=== PATIENT | female | born 1980 | race Caucasian/White ===

== ENCOUNTER 2022-07-17 05:27 | Outpatient (CLI) | payer OTHER ==
[~2022-07-17] VITALS: Ht 162.5 cm; Wt 104.5 kg
[~2022-07-17 05:27] MED LIST: ACHYD1T PO; AMOX500C2 PO; CEPH250C PO; CEPH500C PO; DOCU-161 PO; DOCU100C37 PO; FERR325T18 PO; HYDR-34 PO; IBP800T PO; IBUP-1773 PO; METO50TA7 PO; METR500T PO; NORG1TAB PO; SIME80TA16 PO; TRAM50TA2 PO
[2022-07-21] MEDS ORDERED: BUSP15TA60 PO (13:03)
[2022-07-21] MEDS ORDERED: LOSA50TA63 PO (13:03)
[2022-07-21] MEDS ORDERED: AMLO-250 PO (13:03)
== END 2022-07-21 13:11 | disposition home or self-care (01) ==
LOC: PREOP 05:27
PROVIDERS: ATTEND Otolaryngology Otolaryngology/Facial Plastic Surgery
DX: Z01.818 Encounter for other preprocedural examination (principal)

== ENCOUNTER 2022-07-25 06:32 | Day surgery (SDC) | payer OTHER ==
[~2022-07-25] VITALS: Ht 165.1 cm; Wt 104.5 kg
[2022-07-25] VITALS (12 sets, daily range): BP systolic 110–190; BP diastolic 68–110
[~2022-07-25 06:32] MED LIST changes: +AMLO-250 PO; +BUSP15TA60 PO; +LOSA50TA63 PO
[2022-07-25 07:25] LABS: BASOPHILS # (AUTO) 0.1 10^3/uL (0.0-0.1); BASOPHILS % (AUTO) 1 % (0-10); EOSINOPHILS # (AUTO) 0.4 10^3/uL (0.0-0.3); EOSINOPHILS % (AUTO) 4 % (0-10); HEMATOCRIT 42 % (35-52); LYMPHOCYTES # (AUTO) 2.2 10^3/uL (1.0-4.0); LYMPHOCYTES % (AUTO) 21 % (12-44); MEAN CORPUSCULAR HEMOGLOBIN 28 pg (25-34); MEAN CORPUSCULAR HGB CONC 34 g/dL (32-36); MEAN CORPUSCULAR VOLUME 82 fL (80-99); MEAN PLATELET VOLUME 9.8 fL (9.0-12.2); MONOCYTES # (AUTO) 0.5 10^3/uL (0.0-1.0); MONOCYTES % (AUTO) 5 % (0-12); NEUTROPHILS # (AUTO) 7.2 10^3/uL (1.8-7.8); NEUTROPHILS % (AUTO) 69 % (42-75); PLATELET COUNT 344 10^3/uL (130-400); WHITE BLOOD COUNT 10.5 10^3/uL (4.3-11.0)
[2022-07-25] MEDS ORDERED: MIDAZOLAM 2 MG/2 ML (VERSED) VIAL IV ONE (07:30)
[2022-07-25] MEDS ORDERED: LACTATED RINGERS 1,000 ML IV PRN (07:30)
[2022-07-25 07:40] LABS: POTASSIUM 3.8 MMOL/L (3.6-5.0)
[2022-07-25 07:42] LABS: CALCIUM 9.6 MG/DL (8.5-10.1)
[2022-07-25 07:46] LABS: CREATININE SERUM 0.66 MG/DL (0.60-1.30)
[2022-07-25] MEDS ORDERED: MUPIROCIN 2% OINT 22 GM (BACTROBAN) TUBE ONE (07:48)
[2022-07-25] MEDS ORDERED: LIDOCAINE/EPI 1%-1:100,000 (XYLOCAINE) 20ML ONE (07:49)
[2022-07-25] MEDS ORDERED: fentaNYL INJ 100 MCG/2 ML AMP ONE (08:01)
[2022-07-25] MEDS ORDERED: proPOfol 200 MG/20 ML (DIPRIVAN) VIAL IV ONE ×2 (08:01→08:41)
[2022-07-25] MEDS ORDERED: MIDAZOLAM 2 MG/2 ML (VERSED) VIAL ONE (08:01)
[2022-07-25] MEDS ORDERED: SEVOFLURANE (ULTANE) 15 ML INHAL SOLN ONE ×2 (08:01→08:29)
[2022-07-25] MEDS ORDERED: LIDOCAINE PF 2% 5 ML (XYLOCAINE) VIAL ONE (08:01)
[2022-07-25] MEDS ORDERED: ONDANSETRON 4 MG/2 ML (SDV) Z0FRAN ONE (08:01)
--- NOTE | 2022-07-25 08:16 | Progress Note-Pre Operative ---
Pre-Operative Progress Note Date of Available H&P: Jul 25, 2022 Date H&P Reviewed: Jul 25, 2022 Time H&P Reviewed: 07:30 History & Physical: H&P Reviewed, Patient Examed, No changes noted Changes from last HP none Pre-Operative Diagnosis: Large Left neck Mass MICHEAL TOSCANO MD Jul 25, 2022 08:16
--- NOTE | 2022-07-25 08:16 | Progress Note-Post Operative ---
Post-Operative Progess Note Surgeon (s)/Care Navigator (s) Surgeon MICHEAL TOSCANO MD Care Navigator n/a Pre-Operative Diagnosis Large Left neck Mass Post-Operative Diagnosis same Post-Op Procedure Note Date of Procedure: Jul 25, 2022 Name of Procedure Performed: Excision of 6cm Left Neck Mass Description & Findings Description and Findings: n/a Anesthesia Type get Estimated Blood Loss minimal Packing none. Specimen(s) collected/removed left Neck Mass to pathology for review MICHEAL TOSCANO MD Jul 25, 2022 08:16
[2022-07-25] MEDS ORDERED: HYDROcodone/APAP 5 MG/325 MG (LORTAB) TAB PO PRN (08:30)
[2022-07-25] MEDS ORDERED: ACETAMINOPHEN 325 MG TABLET PO PRN (08:30)
--- NOTE | 2022-07-25 09:07 | Anesthesia-General Post-Op ---
General Patient Condition Mental Status/LOC: Same as Preop Cardiovascular: Satisfactory Nausea/Vomiting: Absent Respiratory: Satisfactory Pain: Controlled Complications: Absent Post Op Complications Complications None Follow Up Care/Instructions Patient Instructions None needed. Anesthesia/Patient Condition Patient Condition Patient is doing well, no complaints, stable vital signs, no apparent adverse anesthesia problems. No complications reported per nursing. MIGUELANGEL BENAVIDEZ CRNA Jul 25, 2022 09:07
[2022-07-25] MEDS ORDERED: fentaNYL INJ 100 MCG/2 ML AMP IVP ONE (09:15)
[2022-07-25] MEDS ORDERED: ONDANSETRON 4 MG/2 ML (SDV) Z0FRAN IVP PRN (09:15)
[2022-07-25] MEDS ORDERED: morphine INJ 10 MG/ML 1ML (SYR OR VIAL) IVP ONE (09:15)
[2022-07-25] MEDS ORDERED: MEPERIDINE (DEMEROL) INJ 50 MG/ML IVP ONE (09:15)
[2022-07-25] MEDS ORDERED: morphine INJ 10 MG/ML 1ML (SYR OR VIAL) ONE (09:30)
[2022-07-25] MEDS ORDERED: ACHD5005 PO (10:03)
[2022-07-25] MEDS ORDERED: HYDROcodone/APAP 5 MG/325 MG (LORTAB) TAB ONE (10:48)
[2022-07-25] MEDS ORDERED: PROMETHAZINE INJ 25 MG/ML (PHENERGAN) AMP IVP ONE (11:15)
== END 2022-07-25 11:10 | disposition home or self-care (01) ==
LOC: SDC 06:32
PROVIDERS: ATTEND Otolaryngology Otolaryngology/Facial Plastic Surgery
DX: L72.0 Epidermal cyst (principal)
CPT/HCPCS: 36415; 80048; 84703; 85025; 87081